=== PATIENT | male | born 1960 | race Caucasian/White ===

== ENCOUNTER 2018-04-20 21:48 | Day surgery (SDC) | payer OTHER ==
[~2018-04-20] VITALS: Ht 180.3 cm; Wt 89.0 kg
[~2018-04-20 21:48] MED LIST: HYDR-3240 PO; LOSA1TAB19 PO
[2018-04-20] MEDS ORDERED: [UNRECOGNIZED DRUG - OTHER] (22:06)
[2018-04-20] MEDS ORDERED: FISH OIL (22:06)
[2018-04-20] MEDS ORDERED: SODIUM CHLORIDE FLUSH 10ML SYR IVF ONE (22:30)
[2018-04-20] MEDS ORDERED: ONDANSETRON 2MG/ML, 2ML IVPush ONE (22:30)
[2018-04-20] MEDS ORDERED: ONDANSETRON 2MG/ML, 2ML ONE (22:33)
[2018-04-20] MEDS ORDERED: MORPHINE SULFATE 4 MG/ML, 1ML ONE ×2 (22:34→23:50)
--- NOTE | 2018-04-20 22:35 | NUR ---
PT MEDICATED PER eMAR, PAIN 7 PRIOR TO MORPHINE, 2/10 POST MORPHINE ADMINISTRATION
[2018-04-20] MEDS: MORPHINE SULFATE 4 MG/ML, 1ML IVPush PRN ×2 (22:36→23:58)
[2018-04-20 22:41] LABS: BASOPHILS # (AUTO) 0.03 x10^3/uL (0-0.1); BASOPHILS % (AUTO) 0 % (0-1); EOSINOPHILS # (AUTO) 0.11 x10^3/uL (0-0.4); EOSINOPHILS % (AUTO) 1 % (1-7); LYMPHOCYTES # (AUTO) 1.13 x10^3/uL (1-3.4); LYMPHOCYTES % (AUTO) 9 % (22-44); MD NO; MEAN CORPUSCULAR HEMOGLOBIN 31.8 pg (27.5-34.5); MEAN CORPUSCULAR HGB CONC 34.7 g/dL (33.2-36.2); MEAN CORPUSCULAR VOLUME 91.5 fL (81-97); MEAN PLATELET VOLUME 7.8 fL (7.4-10.4); MONOCYTES # (AUTO) 0.93 x10^3/uL (0.2-0.8); MONOCYTES % (AUTO) 7 % (2-9); NEUTROPHILS # (AUTO) 10.91 x10^3/uL (1.8-6.8); NEUTROPHILS % (AUTO) 83 % (42-75); PLATELET COUNT 223 x10^3/uL (130-400); RED CELL DISTRIBUTION WIDTH 13.4 % (9.4-14.8)
[2018-04-20 22:44] LABS: ALANINE AMINOTRANSFERASE 43 U/L (12-78); ALBUMIN 3.5 g/dL (3.4-5.0); ANION GAP 7 mmol/L (5-15); CALCIUM 8.1 mg/dL (8.5-10.1); CHLORIDE 106 mmol/L (98-107); CREATININE 1.25 mg/dL (0.7-1.3)
[2018-04-20 22:46] LABS: ALKALINE PHOSPHATASE 93 U/L (45-117); BILIRUBIN,TOTAL 0.7 mg/dL (0.2-1.0); TOTAL PROTEIN 7.1 g/dL (6.4-8.2)
[2018-04-20] MEDS ORDERED: PIPERACILLIN/TAZO/PMX 3.375GM 50 ML ONE ×2 (23:40→23:49)
[2018-04-20] MEDS ORDERED: OMNIPAQUE 350 MG/ML, 100ML BOTTLE ONE (23:42)
[2018-04-21] MEDS ORDERED: PIPERACILLIN/TAZO/PMX 3.375GM 50 ML IV ONE
--- NOTE | 2018-04-21 | NUR ---
PT MEDICATED PER eMAR, STATES UNDERSTANDS DX, WAS WONDERING WHEN THE SURGERY WILL HAPPEN. INFORMED PT WOULD TALK TO MD AND SEE IF I COULD ANSWER THAT
[2018-04-21 00:19] LABS: MICROSCOPIC AUTO
[2018-04-21 00:20] LABS: CULTURE INDICATED? YES
[2018-04-21] MEDS ORDERED: SODIUM CHLORIDE 0.9% 1,000 ML IV ONE (00:43)
[2018-04-21] MEDS ORDERED: MORPHINE SULFATE 4 MG/ML, 1ML IVPush PRN ×2 (01:00→13:30)
[2018-04-21] MEDS ORDERED: ONDANSETRON 2MG/ML, 2ML IVPush PRN ×2 (01:00→13:30)
[2018-04-21] MEDS ORDERED: SODIUM CHLORIDE FLUSH 10ML SYR IVF PRN (01:00)
[2018-04-21 01:14] VITALS: BP 129/79
[2018-04-21 08:15] VITALS: BP 102/64
[2018-04-21] MEDS ORDERED: ACETAMINOPHEN 325 MG TABLET ONE (09:15)
[2018-04-21] MEDS ORDERED: ACETAMINOPHEN 325 MG TABLET PO PRN ×2 (09:30→12:00)
[2018-04-21] MEDS ORDERED: BUPIVACAINE/PF 0.25% INFIL ONE (09:59)
[2018-04-21] MEDS ORDERED: BUPIVACAINE/PF 0.25% ONE (11:27)
[2018-04-21] MEDS ORDERED: FENTANYL PF 100 MCG/2ML ONE ×2 (11:31→11:47)
[2018-04-21] MEDS ORDERED: ROCURONIUM 10MG/ML,5ML ONE (12:00)
[2018-04-21] MEDS ORDERED: LABETALOL 5MG/ML, 20ML IV PRN (12:00)
[2018-04-21] MEDS ORDERED: PHENYLEPHRINE 10 MG/ML ONE (12:00)
[2018-04-21] MEDS ORDERED: ONDANSETRON 2MG/ML, 2ML ONE (12:00)
[2018-04-21] MEDS ORDERED: SUCCINYLCHOLINE 20 MG/ML, 10ML ONE (12:00)
[2018-04-21] MEDS ORDERED: DEXAMETHASONE 4 MG/ML, 1ML ONE (12:00)
[2018-04-21] MEDS ORDERED: HYDROmorphone 2 MG/ML, 1ML IVPush PRN (12:00)
[2018-04-21] MEDS ORDERED: ONDANSETRON ODT 8 MG PO PRN (12:00)
[2018-04-21] MEDS ORDERED: OXYcodone 5 MG/5 ML ORAL.SOL UDC PO PRN (12:00)
[2018-04-21] MEDS ORDERED: CEFOTETAN 2 GM ONE (12:00)
[2018-04-21] MEDS ORDERED: hydrALAzine 20 MG/ML, 1ML IV PRN (12:00)
[2018-04-21] MEDS ORDERED: PROPOFOL 10 MG/ML, 20ML ONE (12:00)
[2018-04-21] MEDS ORDERED: FENTANYL PF 100 MCG/2ML IV PRN (12:00)
[2018-04-21] MEDS ORDERED: PROMETHAZINE 25 MG/ML, 1ML IV PRN (12:00)
[2018-04-21] MEDS ORDERED: ONDANSETRON 2MG/ML, 2ML IV PRN (12:00)
[2018-04-21] MEDS ORDERED: DIAZEPAM 5 MG/ML, 2ML IVPush PRN (12:00)
[2018-04-21] MEDS ORDERED: OXYcodone 5 MG/5 ML ORAL.SOL UDC ONE (12:33)
[2018-04-21] MEDS ORDERED: LACTATED RINGERS 1,000 ML IV SCH (13:30)
[2018-04-21] MEDS ORDERED: OXYcodone/APAP 5/325MG TABLET PO PRN (13:30)
[2018-04-21] MEDS ORDERED: OXYC-302 PO (13:50)
[2018-04-21 14:00] VITALS: BP 124/70
== END 2018-04-21 15:31 | disposition home or self-care (01) ==
LOC: ED 23:59 → UNDOADMIN 04-21 00:43 → EDIP 04-21 00:43 → 4NOR 04-21 01:10 → EDIP 04-21 01:10 → OUT 04-21 13:16 → UNDODISIN 04-21 15:33
PROVIDERS: ATTEND Emergency Medicine
DX: K35.80 Unspecified acute appendicitis (principal); I10 Essential (primary) hypertension; G47.33 Obstructive sleep apnea (adult) (pediatric); Z98.890 Other specified postprocedural states; Z79.899 Other long term (current) drug therapy
CPT/HCPCS: 36415; 44970; 71045; 74177; 80053; 81001; 85025; 87086; 88304; 93005; 99285; J0330; J1100; J2370; J2405; J2543; J2704; J3010; J3490; J7030; Q9967; G0378